=== PATIENT | male | born 2000 | race Caucasian/White ===

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

== ENCOUNTER → 2019-02-24 10:54 | Outpatient (CLI) | payer OTHER, SELFPAY ==
--- NOTE | 2019-02-28 08:07 | PM.PFT.1 ---
Pulmonary Function Test Referral & Results Date Patient Seen: 02/24/19 Requesting provider: Temo Navarrete Results: The spirometry demonstrates an FVC of 5.41 L which is 98% of predicted. The FEV1 was measured at 4.85 L which is 105% of predicted. The FEV1/FVC ratio was 90 which is 106% of predicted. Following the administration of bronchodilator there was no appreciable change to above normal numbers. Lung volumes show an SVC of 5.3 L which is 90% of predicted. The diffusing capacity was measured at 31.75 which is 98% of predicted. The maximum voluntary ventilation was normal Interpretation: This study demonstrates normal pulmonary function
== END ==
PROVIDERS: Visit Provider Student in an Organized Health Care Education/Training Program
DX: Z00.00 Encounter for general adult medical examination without abnormal findings (principal)
CPT/HCPCS: 94060; 94726; 94729

== ENCOUNTER 2022-01-05 10:49 | Emergency (ER) | payer OTHER, SELFPAY ==
[2022-01-05 11:21] VITALS: BMI 22.2
--- NOTE | 2022-01-05 12:35 | ED.EYEPROB ---
HPI - Eye Problem <Stanford Dudley PA-C - Last Filed: 01/05/22 12:44> General Chief complaint: Eye Problems Stated complaint: Left eye swollen Time Seen by Provider: 01/05/22 12:03 Source: patient Mode of arrival: Ambulatory History of Present Illness HPI Narrative: 21-year-old male with a history repeated styes presents to the ED today with 2 days of left upper eyelid swelling, pain, redness. Patient states that he has had repeated styes over this last year, about 4 or 5, but they resolved spontaneously without treatment. Patient states that this tie is more swollen, red, painful than his prior ones. Patient denies any changes in vision, however feels like the swollen upper eyelid is impinging over his eye inability to see. Patient denies any conjunctival injection, discharge, fever, chills. Patient denies any pain with extra-ocular movement. Patient does not wear corrective eyeglasses or contact lenses. Related Data Previous Rx's Medication Instructions Recorded mupirocin 2 % topical ointment 1 applictn TOP BID #22 gram 05/27/18 Allergies Allergy/AdvReac Type Severity Reaction Status Date / Time No Known Drug Allergies Allergy Verified 05/27/18 12:29 Review of Systems <Stanford Dudley PA-C - Last Filed: 01/05/22 12:44> Review of Systems ROS Unobtainable: All systems reviewed & are unremarkable except as noted in HPI and below Constitutional Constitutional: Denies chills, Denies fatigue, Denies fever(s), Denies frequent falls, Denies lethargy and Denies weakness Eyes Eyes: Denies change in vision, Denies eye discharge, Denies irritation and Denies loss of vision Comments: Swelling, redness, pain of left upper eyelid. ENT Ears, Nose, Mouth, and Throat: Denies change in voice, Denies dizziness, Denies neck pain, Denies sore throat and Denies throat swelling Cardiovascular Cardiovascular: Denies chest pain, Denies irregular heart rhythm, Denies lightheadedness, Denies palpitations, Denies dyspnea, Denies dyspnea on exertion and Denies orthopnea Respiratory Respiratory: Denies cough, Denies dyspnea, Denies dyspnea on exertion and Denies wheezing Gastrointestinal Gastrointestinal: Denies abdominal pain, Denies change in bowel habits, Denies diarrhea, Denies nausea and Denies vomiting Genitourinary Genitourinary: Denies hematuria, Denies flank pain, Denies urinary incontinence and Denies urinary urgency Musculoskeletal Musculoskeletal: Denies back pain, Denies muscle weakness, Denies neck pain, Denies numbness and Denies tingling Integumentary/Breasts Skin/Breast: Denies pruritus, Denies erythema, Denies rash and Denies wounds Neurologic Neurologic: Denies behavioral changes, Denies confusion, Denies dizziness, Denies frequent falls, Denies loss of vision, Denies numbness, Denies tingling and Denies weakness Psychiatric Psychiatric: Denies anxiety, Denies behavioral changes, Denies confusion, Denies depression, Denies homicidal ideation and Denies suicidal ideation Endocrine Endocrine: Denies fatigue, Denies flushing and Denies palpitations Hematologic/Lymphatic Hematologic/Lymphatic: Denies easy bruising Allergic/Immunologic Allergic/Immunologic: Denies urticaria, Denies throat swelling and Denies wheezing Patient History <Stanford Dudley PA-C - Last Filed: 01/05/22 12:44> Social History Smoking Status: Never smoker Smoking Status: Never smoker Substance Use Type: does not use Exam <Stanford Dudley PA-C - Last Filed: 01/05/22 12:44> Const General: cooperative, healthy appearing and comfortable HENMT Head: normal to inspection Ears: hearing grossly normal bilaterally Nose: external nose normal Face and sinus: normal facial exam Eyes Alignment and Position: alignment normal Periorbital: periorbital findings normal Eyelids: eyelid abnormality (Swelling, erythema, tenderness to palpation) left upper eyelid Conjunctivae: conjunctivae normal Sclera: sclerae normal Pupils: PERRL EOM: EOM intact bilaterally (No pain with extraocular movements) Resp Effort & Inspection: normal respiratory effort Cardio Rate: regular rate Skin General: no rashes or lesions noted Neuro General: patient alert, patient awake and patient oriented x3 Psych Appearance: grossly normal Mental Status: mental status grossly normal MDM - Eye Problem <Stanford Dudley PA-C - Last Filed: 01/05/22 12:44> MDM Narrative Medical decision making narrative: 21-year-old male with a history repeated styes presents to the ED today with 2 days of left upper eyelid swelling, pain, redness. Patient's symptoms and physical exam consistent with a hordeolum. Physical exam is reassuring for no changes in vision, no periorbital erythema, no pain with extraocular movements, no signs of infection. Counseled patient on using warm compresses for the next 3 days. Recommend follow-up with an primer inserting machine operator if symptoms do not improve/resolve in 3 days. ED return precautions discussed with patient. Patient verbalizes understanding. Discharge Plan Departure Patient Disposition: Home Clinical Impression: Hordeolum Instructions: Hordeolum Activity Restrictions/Additional Instructions: You were evaluated in the ED today for a left eye stye. Your eye does not appear to be infected, your vision is intact. You may apply warm compresses for 10 minutes at a time every 2 hours for the next 3 days. If the stye does not resolve after 3 days, please follow-up with an primer inserting machine operator. Return to the ED if you notice any changes in vision, increasing redness of the area around the eye, fever, chills. Prescriptions: No Action mupirocin 2 % ointment 1 applictn TOP BID Qty: 22 0RF <Charisse Gomez, - Last Filed: 01/07/22 07:24> Cosign ED Attending Cesarature Attestation: I was immediately available in the department for consultation. Documentation has been reviewed. I agree with assessment and plan.
== END 2022-01-05 12:37 | disposition home or self-care (01) ==
PROVIDERS: Emergency Provider Student in an Organized Health Care Education/Training Program
DX: H00.014 Hordeolum externum left upper eyelid (principal)
CPT/HCPCS: 99281